=== PATIENT | male | born 1985 | race Two or more races ===

== ENCOUNTER 2024-05-13 18:07 | Emergency (ER) | payer MEDICAID ==
[~2024-05-13] VITALS: Ht 165.1 cm; Wt 70.9 kg
[2024-05-13 19:49] LABS: SYPHILIS SCREENING TEST POC NEGATIVE (Negative)
[2024-05-13] MEDS ORDERED: CEPH-585 PO (21:39)
[2024-05-13 21:49] VITALS: BP 135/86; PULSE 101; RESP 20; TEMP 98.9; O2SAT 99
== END 2024-05-13 21:50 | disposition home or self-care (01) ==
LOC: ER 18:08
DX: L01.00 Impetigo, unspecified (principal)
CPT/HCPCS: 36415; 87491; 99283

== ENCOUNTER 2024-12-10 01:02 | Emergency (ER) | payer MEDICAID, OTHER ==
[~2024-12-10] VITALS: Ht 165.1 cm; Wt 71.2 kg
[2024-12-10 01:10] VITALS: BP 123/87; PULSE 118; RESP 16; TEMP 97.8; O2SAT 99
== END 2024-12-10 03:25 | disposition left against medical advice (07) ==
LOC: ER 01:03
DX: K08.89 Other specified disorders of teeth and supporting structures (principal); Z53.21 Procedure and treatment not carried out due to patient leaving prior to being seen by health care provider